=== PATIENT | male | born 1980 | race African-American/Black ===

== ENCOUNTER 2018-12-15 12:35 | Emergency (ER) | payer MEDICAID ==
[~2018-12-15] VITALS: Ht 190.5 cm; Wt 113.4 kg
[2018-12-15] MEDS ORDERED: QUET25TA PO (12:43)
[2018-12-15] MEDS ORDERED: BUPR1FIL SL (12:43)
[2018-12-15] MEDS ORDERED: BUSP10TA35 PO (12:43)
[2018-12-15] MEDS ORDERED: OLAN5TAB3 PO (12:43)
--- NOTE | 2018-12-15 13:01 | NUR ---
urine collected and sent to lab
[2018-12-15 13:07] LABS: BASOPHILS # (AUTO) 0.1 /CMM (0.0-0.2); BASOPHILS % (AUTO) 0.7 % (0.0-2.0); EOSINOPHILS % (AUTO) 0.4 % (0.0-6.0); HEMATOCRIT 54 % (39-51); HEMOGLOBIN 18.5 g/dL (13.5-17.5); LYMPHOCYTES # (AUTO) 1.6 /CMM (0.8-4.8); LYMPHOCYTES % (AUTO) 16.8 % (20.0-44.0); MEAN CORPUSCULAR HGB CONC 34 g/dl (31.0-36.0); MEAN CORPUSCULAR VOLUME 90 fL (80-96); MONOCYTES # (AUTO) 1.4 /CMM (0.1-1.30); NEUTROPHILS # (AUTO) 6.5 /CMM (1.8-8.9); NEUTROPHILS % (AUTO) 67.1 % (43.0-81.0); PLATELET COUNT (AUTO) 273 /CMM (150-450); RED BLOOD CELL COUNT(AUTO) 5.98 MIL/uL (4.5-6.0); WHITE BLOOD COUNT (AUTO) 9.6 K/uL (4.3-11.0)
[2018-12-15 13:10] LABS: BILIRUBIN,URINE SMALL (NEGATIVE); BLOOD, URINE Negative Ery/uL (NEGATIVE); KETONES,URINE 15 (NEGATIVE); LEUKOCYTE ESTERASE ,URINE Negative (NEGATIVE); NITRITE, URINE Negative (NEGATIVE); PH,URINE 5.5 (5.0-8.0); PROTEIN,URINE 30 mg/dl (NEGATIVE); UGLUCOSE Negative (NEGATIVE); UROBILINOGEN,URINE 0.2 EU/dL (0.2)
[2018-12-15 13:11] LABS: APPEARANCE,URINE Hazy (CLEAR); COLOR,URINE Dark Yellow (YELLOW)
[2018-12-15 13:16] LABS: BACTERIA,URINE Rare /HPF (None Seen); RBC,URINE 0-3 /HPF (0-2); SQUAMOUS EPITHELIAL CELL,UR Few /HPF (None Seen)
[2018-12-15 13:17] LABS: CALCIUM, SERUM 9.1 mg/dL (8.5-10.1); CARBON DIOXIDE 24 mmol/L (21-32); CHLORIDE 98 mmol/L (98-107); CREATININE 1.3 mg/dL (0.6-1.3); GLUCOSE 144 mg/dL (74-106); POTASSIUM 3.7 mmol/L (3.5-5.1); SODIUM SERUM 136 mmol/L (136-145); UREA NITROGEN, BLOOD 33 mg/dL (7-18)
[2018-12-15 13:24] LABS: ACETAMINOPHEN 0 ug/ml (10-30); ALANINE AMINOTRANSFERASE 887 U/L (12-78); ALBUMIN 4.3 g/dL (3.4-5.0); ALCOHOL, BLOOD 24 mg/dL (0-0); ALKALINE PHOSPHATASE 194 U/L (46-116); ASPARTATE AMINOTRANSFERASE 422 U/L (15-37); BILIRUBIN,DIRECT 0.9 mg/dL (0.0-0.2); BILIRUBIN,TOTAL 2.7 mg/dL (0.2-1.0); SALICYLATE < 2.8 mg/dL (2.8-20.0)
--- NOTE | 2018-12-15 13:58 | NUR ---
CALLED FOR FOOD TRAY
[2018-12-15] MEDS: IV NS 0.9% 1,000 ML IV ONE ×2 (14:30)
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
[2018-12-15] MEDS ORDERED: LORAZEPAM 1 MG TABLET ONE (15:13)
[2018-12-15] MEDS: LORAZEPAM 1 MG TABLET PO ONE (15:28)
--- NOTE | 2018-12-15 16:17 | NUR ---
ACCEPTED AT [facility]. ACCEPTING . DR KHALIL. [phone]
[2018-12-15 17:45] VITALS: BP 135/67
--- NOTE | 2018-12-15 17:46 | NUR ---
Patient picked up by private ambulance in no apparent distress noted. going to [facility].
== END 2018-12-15 17:45 ==
LOC: ER 12:38
DX: F32.9 Major depressive disorder, single episode, unspecified (principal); F19.10 Other psychoactive substance abuse, uncomplicated; F10.10 Alcohol abuse, uncomplicated; F12.10 Cannabis abuse, uncomplicated; F13.10 Sedative, hypnotic or anxiolytic abuse, uncomplicated; F15.10 Other stimulant abuse, uncomplicated; Y90.1 Blood alcohol level of 20-39 mg/100 ml; Z60.2 Problems related to living alone
CPT/HCPCS: 36415; 80048; 80076; 80305; 80307; 80329; 81001; 85025; 99285; G0480; J7030; 81000-TC